=== PATIENT | male | born 1960 | race Caucasian/White ===

== ENCOUNTER 2025-03-12 05:57 | Inpatient (IN) | payer MEDICARE, OTHER ==
[~2025-03-12] VITALS: Ht 170.2 cm; Wt 77.6 kg
[2025-03-12 08:00] VITALS: BP 109/63; TEMP 97.6; O2SAT 96
[2025-03-12 12:00] VITALS: BP 102/46; TEMP 97.6; O2SAT 96
[2025-03-12] MEDS ORDERED: REMEDY ESSENTIAL ZINC PASTE 113 GM TP PRN (12:00)
[2025-03-12] MEDS ORDERED: DEXTROSE 50% 50 ML DISP.SYRIN IV PRN (12:00)
[2025-03-12] MEDS ORDERED: INSULIN REGULAR, HUMAN 300 UNITS/3 ML VIAL SQ PRN (12:00)
[2025-03-12] MEDS ORDERED: ONDANSETRON 4 MG/2 ML VIAL IV PRN (12:00)
[2025-03-12] MEDS: BLOOD SUGAR DIAGNOSTIC 1 EACH STRIP VI SCH (12:26)
[2025-03-12] MEDS: INSULIN REGULAR, HUMAN 1000 UNIT/10 ML VIAL SQ PRN (12:27)
[2025-03-12] MEDS ORDERED: ERGO500040 PO (12:37)
[2025-03-12] MEDS ORDERED: SITA50TA PO (12:39)
[2025-03-12] MEDS ORDERED: METF-442 PO (12:39)
[2025-03-12] MEDS ORDERED: ATOR20TA PO (12:40)
[2025-03-12] MEDS: ENOXAPARIN SODIUM 40 MG/0.4 ML DISP.SYRIN SQ SCH (12:53)
[2025-03-12] MEDS: IV NS 1000 ML 1,000 ML IV PRN (12:56)
[2025-03-12] MEDS: ACETAMINOPHEN 325 MG TABLET PO PRN (14:47)
[2025-03-12 16:35] VITALS: BP 138/48; TEMP 98.3; O2SAT 98
[2025-03-12 16:38] VITALS: BP 116/68; TEMP 98; O2SAT 96
[2025-03-12 20:00] VITALS: BP 110/62; TEMP 97.8; O2SAT 96
[2025-03-12] MEDS: ATORVASTATIN 40 MG TABLET PO SCH (20:51)
[2025-03-13 05:00] VITALS: BP 130/73; TEMP 98.1; O2SAT 98
[2025-03-13] MEDS: PANTOPRAZOLE SODIUM 40 MG TABLET.DR PO SCH (06:20)
[2025-03-13 07:20] LABS: PLATELET COUNT (AUTO) 387 K/uL (152-348); RED BLOOD CELL COUNT(AUTO) 4.17 MIL/uL (4.06-5.63); RED CELL DISTRIBUTION WIDTH 14.0 % (12.1-16.2); WHITE BLOOD COUNT (AUTO) 12.1 K/uL (3.6-10.2)
[2025-03-13 07:45] LABS: CREATININE 0.9 mg/dL (0.6-1.3); SODIUM SERUM 135.0 mmol/L (136-145); UREA NITROGEN, BLOOD 13.0 mg/dL (7-18)
[2025-03-13 10:57] VITALS: BP 122/71; TEMP 97.6; O2SAT 97
[2025-03-13 15:11] VITALS: BP 133/64; TEMP 98.4; O2SAT 100
[2025-03-13] MEDS ORDERED: METFORMIN HCL 500 MG TABLET PO SCH (18:00)
== END 2025-03-13 16:35 | disposition home or self-care (01) | DRG 641 ==
LOC: MEDSURG3 05:57
PROVIDERS: ADMIT Nurse Practitioner Acute Care; ATTEND Nurse Practitioner Acute Care
DX: E87.1 Hypo-osmolality and hyponatremia (principal); S80.211A Abrasion, right knee, initial encounter; W01.0XXA Fall on same level from slipping, tripping and stumbling without subsequent striking against object, initial encounter; Y92.031 Bathroom in apartment as the place of occurrence of the external cause; G89.29 Other chronic pain; M54.6 Pain in thoracic spine; G83.24 Monoplegia of upper limb affecting left nondominant side; S14.3XXS Injury of brachial plexus, sequela; X58.XXXS Exposure to other specified factors, sequela; E11.40 Type 2 diabetes mellitus with diabetic neuropathy, unspecified; Z98.42 Cataract extraction status, left eye; I10 Essential (primary) hypertension
CPT/HCPCS: 36415; 83735; 84100; 85025; A4663; G0378; J1650; J1815; J7040

== ENCOUNTER 2025-03-18 11:29 | Inpatient (IN) | payer MEDICARE, MEDICAID ==
[~2025-03-18] VITALS: Ht 170.2 cm; Wt 79.8 kg
[~2025-03-18 11:29] MED LIST: METF-442 PO
[2025-03-18 14:15] VITALS: BP 117/81; TEMP 98.1
[2025-03-18 14:32] VITALS: BP 117/81; TEMP 98.1
[2025-03-19 15:30] VITALS: BP 139/84; TEMP 97.7; O2SAT 98
[2025-03-19] MEDS ORDERED: ATOR20TA PO (15:56)
[2025-03-19] MEDS ORDERED: ACET325T53 PO (15:56)
[2025-03-19] MEDS ORDERED: BLOO-360 METER (15:57)
[2025-03-19] MEDS ORDERED: DEXT50DI8 IV (15:59)
[2025-03-19] MEDS ORDERED: ENOX40DI SUBCUT (15:59)
[2025-03-19] MEDS ORDERED: INSU100V28 SQ (16:21)
[2025-03-19] MEDS ORDERED: ROBITUSSIN DM PO (16:21)
[2025-03-19] MEDS ORDERED: MAG30ORA PO (16:22)
[2025-03-19] MEDS ORDERED: MAGN400O6 PO (16:23)
[2025-03-19] MEDS ORDERED: MUPI22OI2 TP (16:24)
[2025-03-19] MEDS ORDERED: PANT40TA49 PO (16:24)
[2025-03-19] MEDS ORDERED: Z-GUARD TOP (16:25)
[2025-03-19] MEDS ORDERED: TEMA15CA PO (16:25)
[2025-03-19] MEDS ORDERED: ACETAMINOPHEN 325 MG TABLET PO PRN (18:00)
[2025-03-19] MEDS ORDERED: DEXTROSE 50% 50 ML DISP.SYRIN IV PRN ×2 (18:30)
[2025-03-19] MEDS ORDERED: MAG HYDROX/AL HYDROX/SIMETH 30 ML LIQUID UDC PO PRN (18:30)
[2025-03-19] MEDS ORDERED: ROBITUSSIN DM PO PRN (18:30)
[2025-03-19] MEDS ORDERED: Medication Not On Formulary EA ([Z-Guard] 1 APPLIC) TOP PRN (18:30)
[2025-03-19] MEDS ORDERED: REMEDY ESSENTIAL ZINC PASTE 113 GM TOP PRN (18:45)
[2025-03-19 20:00] VITALS: BP 123/68; TEMP 97.4; O2SAT 99
[2025-03-19] MEDS: ATORVASTATIN 20 MG TABLET PO SCH (20:18)
[2025-03-19] MEDS: MUPIROCIN 2% OINT 22 GM TUBE TP SCH (20:19)
[2025-03-19] MEDS: GUAIFENESIN/DEXTROMETHORPHAN 5 ML UDC PO PRN (20:20)
[2025-03-19] MEDS: ACETAMINOPHEN 325 MG TABLET PO PRN (20:20)
[2025-03-19] MEDS: BLOOD SUGAR DIAGNOSTIC 1 EACH STRIP VI SCH (20:34)
[2025-03-19] MEDS: INSULIN REGULAR, HUMAN 1000 UNIT/10 ML VIAL SQ PRN (20:39)
[2025-03-19] MEDS ORDERED: MUPIROCIN 2% OINT 22 GM TUBE TP SCH (21:00)
[2025-03-19] MEDS ORDERED: INSULIN REGULAR, HUMAN 1000 UNIT/10 ML VIAL SQ SCH (21:00)
[2025-03-19] MEDS ORDERED: BLOOD SUGAR DIAGNOSTIC 1 EACH STRIP VI SCH (21:00)
[2025-03-20] MEDS: TEMAZEPAM 15 MG CAPSULE PO PRN (00:02)
[2025-03-20 06:00] VITALS: BP 98/62; TEMP 97.6; O2SAT 98
[2025-03-20 07:17] LABS: PLATELET COUNT (AUTO) 371 K/uL (152-348); RED BLOOD CELL COUNT(AUTO) 3.78 MIL/uL (4.06-5.63); RED CELL DISTRIBUTION WIDTH 13.9 % (12.1-16.2); WHITE BLOOD COUNT (AUTO) 5.4 K/uL (3.6-10.2)
[2025-03-20 07:48] LABS: IRON, SERUM 71.0 ug/dL (50-175)
[2025-03-20 08:11] LABS: ASPARTATE AMINOTRANSFERASE 17.0 U/L (15-37); CREATININE 0.9 mg/dL (0.6-1.3); SODIUM SERUM 132.0 mmol/L (136-145); TOTAL PROTEIN, SERUM 6.2 g/dL (6.4-8.2); UREA NITROGEN, BLOOD 11.0 mg/dL (7-18)
[2025-03-20 08:43] VITALS: BP 100/70; TEMP 98.3; O2SAT 98
[2025-03-20] MEDS: PANTOPRAZOLE SODIUM 40 MG TABLET.DR PO SCH (08:46)
[2025-03-20] MEDS: ENOXAPARIN SODIUM 40 MG/0.4 ML DISP.SYRIN SQ SCH (08:47)
[2025-03-20] MEDS ORDERED: CYANOCOBALAMIN 1000 MCG/ML VIAL IM SCH (09:15)
[2025-03-20 20:00] VITALS: BP 126/79; TEMP 97.5; O2SAT 98
[2025-03-20] MEDS: REMEDY ESSENTIAL ZINC PASTE 113 GM TOP PRN (22:11)
[2025-03-20] MEDS: TEMAZEPAM 7.5 MG CAPSULE PO PRN (22:22)
[2025-03-21 06:26] VITALS: BP 123/70; TEMP 97.5; O2SAT 96
[2025-03-21 12:43] VITALS: BP 117/65; TEMP 97.8; O2SAT 98
[2025-03-21 20:49] VITALS: BP 111/63; TEMP 97.5; O2SAT 99
[2025-03-21] MEDS: ACETAMINOPHEN/CODEINE 300-30 MG TABLET PO PRN (21:14)
[2025-03-21] MEDS: TRAZODONE 50 MG TABLET PO SCH (21:16)
[2025-03-21] MEDS: MAGNESIUM HYDROXIDE 30 ML LIQUID UDC PO PRN (21:16)
[2025-03-22 06:46] VITALS: BP 104/65; TEMP 98; O2SAT 96
[2025-03-22 07:51] VITALS: BP 116/66; TEMP 97.7; O2SAT 98
[2025-03-22 16:26] VITALS: BP 149/79; TEMP 97.4; O2SAT 98
[2025-03-22 23:05] VITALS: BP 128/77; TEMP 97.2; O2SAT 98
[2025-03-23 06:46] VITALS: BP 121/68; TEMP 97.6; O2SAT 99
[2025-03-23 07:41] VITALS: BP 111/66; TEMP 97.8; O2SAT 96
[2025-03-23 16:00] VITALS: BP 130/71; TEMP 97.6; O2SAT 98
[2025-03-23] MEDS: GLIMEPIRIDE 2 MG TABLET PO SCH (16:10)
[2025-03-23 20:25] VITALS: BP 133/71; TEMP 97.9; O2SAT 100
[2025-03-24 05:55] VITALS: BP 132/65; TEMP 97.8; O2SAT 98
[2025-03-24 07:49] VITALS: BP 134/69; TEMP 97.6; O2SAT 99
[2025-03-24] MEDS: ASCORBIC ACID 500 MG TABLET PO SCH (08:36)
[2025-03-24] MEDS: ZINC SULFATE 220 MG CAPSULE PO SCH (08:36)
[2025-03-24 16:45] VITALS: BP 134/78; TEMP 97.5; O2SAT 98
[2025-03-24 20:16] VITALS: BP 140/76; TEMP 97.5; O2SAT 99
[2025-03-25 05:28] VITALS: BP 108/63; TEMP 97.8; O2SAT 97
[2025-03-25 08:00] VITALS: BP 128/72; TEMP 97.6; O2SAT 99
[2025-03-25 15:49] VITALS: BP 122/66; TEMP 97.8; O2SAT 99
[2025-03-26 08:06] VITALS: BP 129/69; TEMP 98; O2SAT 98
== END 2025-03-26 16:00 | disposition home health service (06) | DRG 872 ==
PROVIDERS: ADMIT Physical Medicine & Rehabilitation Pain Medicine; ATTEND Physical Medicine & Rehabilitation Pain Medicine
DX: A41.9 Sepsis, unspecified organism (principal); N39.0 Urinary tract infection, site not specified; E44.0 Moderate protein-calorie malnutrition; E87.20 Acidosis, unspecified; E22.2 Syndrome of inappropriate secretion of antidiuretic hormone; D68.59 Other primary thrombophilia; L97.329 Non-pressure chronic ulcer of left ankle with unspecified severity; R53.1 Weakness; E88.09 Other disorders of plasma-protein metabolism, not elsewhere classified; E11.40 Type 2 diabetes mellitus with diabetic neuropathy, unspecified; E53.8 Deficiency of other specified B group vitamins; E78.5 Hyperlipidemia, unspecified; S50.311D Abrasion of right elbow, subsequent encounter; S80.211D Abrasion, right knee, subsequent encounter; S61.412D Laceration without foreign body of left hand, subsequent encounter; W18.30XD Fall on same level, unspecified, subsequent encounter; B96.89 Other specified bacterial agents as the cause of diseases classified elsewhere; E11.622 Type 2 diabetes mellitus with other skin ulcer; Z88.0 Allergy status to penicillin; R42 Dizziness and giddiness
CPT/HCPCS: 36415; 83550; 83735; 84100; 84443; 85025; 97535-GO-CO; J1650; J1815